=== PATIENT | female | born 1950 ===

== ENCOUNTER 2017-01-11 08:35 | Day surgery (SDC) | payer MEDICAID, MEDICARE ==
[2017-01-09 09:36] VITALS: BMI 35.5
[2017-01-11 09:07] VITALS: O2SAT 100
[2017-01-11] MEDS ORDERED: Propofol 10 mg/ml Inj (20 ML) ONE ×5 (11:11→12:10)
[2017-01-11] MEDS ORDERED: Lactated Ringer's 500 ML IV SCH (11:30)
[2017-01-11] MEDS ORDERED: Glucagon Recombinant 1 mg Inj ONE (11:44)
[2017-01-11 12:28] VITALS: TEMP 96.9
[2017-01-11 13:33] VITALS: BP 126/56; PULSE 60; RESP 16
== END 2017-01-11 13:15 | disposition home or self-care (01) ==
LOC: C.ENDO 08:35
PROVIDERS: ATTEND Internal Medicine Gastroenterology
DX: Z12.11 Encounter for screening for malignant neoplasm of colon (principal); D12.0 Benign neoplasm of cecum; D12.5 Benign neoplasm of sigmoid colon; D12.3 Benign neoplasm of transverse colon; K57.30 Diverticulosis of large intestine without perforation or abscess without bleeding; K64.8 Other hemorrhoids
CPT/HCPCS: 45380; 45385; 82948; 88305; J1610; J2704; J3010; J7120

== ENCOUNTER 2017-09-06 08:09 | Day surgery (SDC) | payer MEDICARE ==
[2017-01-09 09:35] VITALS: BMI 35.5
[2017-09-06 09:37] VITALS: O2SAT 100
--- NOTE | 2017-09-06 11:01 | CP.SDSHP ---
Same Day Surgery H & P - History Proposed Procedure: colonoscopy Pre-Op Diagnosis: screening - Previous Medical/Surgical History Cardiac: Hypertension Endocrine/Metabolic: Diabetes - Allergies Allergies: Allergies Penicillins Allergy (Intermediate, Verified 09/06/17 08:33) RASH - Physical Exam General Appearance: NAD Vital Signs: Vital Signs 09/06/17 09/06/17 08:30 09:40 Temperature 97.1 F L 97.1 F L Pulse Rate 50 L 50 L Respiratory 19 19 Rate Blood Pressure 140/59 L 140/59 L O2 Sat by Pulse 100 100 Oximetry Mental Status: Alert & Oriented x3 Neuro: WNL Heart: WNL Lungs: WNL GI: WNL - {Optional Preform as Required} Abdomen: WNL - Impression Pt. Evaluated Today:Candidate for Anesthesia & Procedure: Yes - Date & Time Date: 09/06/17 Time: 11:01 Short Stay Discharge - Short Stay Discharge Admitting Diagnosis/Reason for Visit: ENCOUNTER FOR SCREENING FOR MALIGNANT NEOPLASM OF Disposition: HOME/ ROUTINE
[2017-09-06] MEDS ORDERED: Propofol 10 mg/ml Inj (20 ML) ONE ×2 (11:09→11:36)
[2017-09-06] MEDS ORDERED: Lidocaine Hydrochloride 5 ML INJ ONE (11:09)
[2017-09-06] MEDS ORDERED: Lactated Ringer's 1,000 ML IV ONE ×2 (11:10)
[2017-09-06 12:32] VITALS: TEMP 97
[2017-09-06 13:48] VITALS: BP 139/53; PULSE 53; RESP 20
== END 2017-09-06 13:04 | disposition home or self-care (01) ==
LOC: C.ENDO 08:09
PROVIDERS: ATTEND Internal Medicine Gastroenterology
DX: Z12.11 Encounter for screening for malignant neoplasm of colon (principal); I10 Essential (primary) hypertension; E11.9 Type 2 diabetes mellitus without complications; D12.4 Benign neoplasm of descending colon; K57.30 Diverticulosis of large intestine without perforation or abscess without bleeding; D12.5 Benign neoplasm of sigmoid colon; K62.1 Rectal polyp; Z88.0 Allergy status to penicillin; Z86.010 Personal history of colon polyps
CPT/HCPCS: 45385; 45388; 82948; 88305; J2704; J7120

== ENCOUNTER 2018-04-10 10:15 | Outpatient (CLI) | payer MEDICARE | END 2018-04-10 10:16 | disposition home or self-care (01) | LOC: C.VASC 10:15 ==

== ENCOUNTER 2018-06-05 11:03 | Outpatient (CLI) | payer MEDICARE | END 2018-06-05 11:04 | disposition home or self-care (01) | LOC: C.MAMMO 11:03 | DX: Z12.31 Encounter for screening mammogram for malignant neoplasm of breast (principal) ==